=== PATIENT | female | born 1955 | race Caucasian/White ===

== ENCOUNTER 2019-10-11 16:12 | Outpatient (CLI) | payer BC, SELFPAY ==
--- NOTE | ~2019-10-11 | MM_ITS ---
EXAMINATION: MM screening nathalia BI w adi HISTORY: Screening mammogram, family history of breast cancer in her mother. TECHNIQUE: Craniocaudal and mediolateral oblique 3-D tomosynthesis images were obtained and synthetic 2-D images were generated. CAD analysis was submitted and interpreted. COMPARISON: 09/09/2018 BREAST PARENCHYMAL COMPOSITION: There are scattered areas of fibroglandular density. FINDINGS: Scattered benign-appearing calcifications are present. There is no evidence of suspicious m ass, calcification, or architectural distortion to suggest malignancy in either breast. There has bee n no suspicious interval change. IMPRESSION: 1. No mammographic evidence of malignancy. 2. Recommend routine screening mammography in one year. BI-RADS Category 2: Benign finding(s). Reviewed, dictated and finalized at location A. [facility]
== END 2019-10-11 16:13 | disposition home or self-care (01) ==
LOC: ANHIMG 16:15
PROVIDERS: PCP Internal Medicine; Visit Provider Internal Medicine
DX: Z12.31 Encounter for screening mammogram for malignant neoplasm of breast (principal)
CPT/HCPCS: 77063; 77067

== ENCOUNTER 2020-10-24 12:21 | Outpatient (CLI) | payer BC, SELFPAY ==
--- NOTE | ~2020-10-24 | MM_ITS ---
EXAMINATION: MM screening nathalia BI w adi HISTORY: Screening TECHNIQUE: Craniocaudal and mediolateral oblique 3-D tomosynthesis images were obtained and synthetic 2-D images were generated. CAD analysis was submitted and interpreted. COMPARISON: Comparison to multiple prior studies sequentially, with oldest reviewed study dated 09/09. BREAST PARENCHYMAL COMPOSITION: There are scattered areas of fibroglandular density. FINDINGS: There is no evidence of suspicious mass, calcification, or architectural distortion to sugg est malignancy in either breast. There has been no suspicious interval change. IMPRESSION: 1. No mammographic evidence of malignancy. 2. Recommend routine screening mammography in one year. BI-RADS Category 1: Negative Reviewed, dictated and finalized at location D. [employer]
== END 2020-10-24 12:22 | disposition home or self-care (01) ==
LOC: ANHIMG 12:25
PROVIDERS: PCP Internal Medicine; Visit Provider Internal Medicine
DX: Z12.31 Encounter for screening mammogram for malignant neoplasm of breast (principal)
CPT/HCPCS: 77063; 77067

== ENCOUNTER 2021-05-28 01:08 | Day surgery (SDC) | payer BC, SELFPAY ==
[2021-05-22 10:24] VITALS: BMI 26.2
[2021-05-28 10:11] VITALS: BP 111/62; PULSE 84; RESP 18; TEMP 36.2; O2SAT 97
[2021-05-28] MEDS: LACTATED RINGERS 1,000 ML 150 ML IV CONT (10:18)
--- NOTE | 2021-05-28 10:49 | P.PNAN_ITS ---
Anes - Initial Pre Proc Eval Procedure: Operation Date: 05/28/21 11:00 Proposed Procedures p Screening Colonoscopy - Dudley Gonzalez MD Date/Time: 05/28/21 10:49 Surgeon: Dudley Gonzalez MD Pre Op Diagnosis: hx of colon polyps Patient Data Age: 65 Gender: F Height: 1.7 m Weight: 75.5 kg Last Vital Signs Temp 97.1 F L 05/28/21 10:11 Pulse 84 05/28/21 10:11 Resp 18 05/28/21 10:11 BP 111/62 05/28/21 10:11 Pulse Ox 97 05/28/21 10:11 Allergies Allergy/AdvReac Type Severity Reaction Status Date / Time No Known Allergies Allergy Verified 05/28/21 10:09 Home Medications Medication Instructions Recorded Confirmed Type cholecalciferol (vitamin D3) 50 mcg PO DAILY 05/22/21 05/22/21 History [Vitamin D3] fluoxetine 20 mg PO DAILY 05/22/21 05/22/21 History Patient hx anesthesia problems: none Family hx anesthesia problems: none Results Review: All pre-operative results and documents have been reviewed as part of the pre-operative evaluation. [facility] Past Medical History Medical History (Updated 05/28/21 @ 10:49 by Jone Gonsalez MD) Depression Social History Social History Smoking status: Never smoker Alcohol intake: current Substance use: never Substance use type: does not use Living arrangements: with family Spiritual care concerns: No Anes - Eval Final PreProcedure Day of Procedure 05/28/21 10:49 Patient weight: overweight Heart: regular rate and rhythm Lungs: clear to auscultation Airway: Mallampati scale class II Neurological: alert and oriented Last oral intake: >/= 8 hours ASA classification: II Emergent: no Anesthetic plan: proceed Anesthesia type and monitoring: general GIVS and standard monitoring Results Review: All pre-operative results and documents have been reviewed as part of the pre-operative evaluation. Informed Consent: The patient's anesthetic plan and its attendant risks and benefits were discussed with the patient/family/POA. Questions were solicited and answers provided to the satisfaction of the patient/family/POA.
--- NOTE | 2021-05-28 11:07 | PM.HPGS ---
History of Present Illness History of Present Illness Consent: Risks, benefits, and alternatives have been discussed and questions answered. Patient agrees to proceed with procedure. Chief complaint: hx of colon polyps Narrative: Aurelia Sun is a 65 year old female with colon polyps 5 years ago. Review of Systems Constitutional: Constitutional: Denies headache(s) and Denies weakness Eyes: Eyes: Denies blurry vision ENT: Reports Normal hearing present, Denies headache(s) and Denies neck pain Cardiovascular: Cardiovascular: Denies chest pain and Denies dyspnea Respiratory: Respiratory: Denies dyspnea Gastrointestinal: Gastrointestinal: Reports no additional gastrointestinal complaints Genitourinary: Genitourinary: Denies dysuria Musculoskeletal: Musculoskeletal: Denies neck pain Integumentary/Breasts: Skin/Breast: Denies dry skin Neurologic: Reports Normal hearing present, Denies headache(s) and Denies weakness Psychiatric: Psychiatric: Denies anxiety Endocrine: Endocrine: Denies change in body appearance Hematologic/Lymphatic: Hematologic/Lymphatic: Denies easy bleeding Allergic/Immunologic: Allergic/Immunologic: Denies urticaria PMFSH Past Medical History Medical History (Updated 05/28/21 @ 11:08 by Dudley Gonzalez MD) Adenomatous colon polyp Depression Social History Social History Smoking status: Never smoker Alcohol intake: current Substance use: never Substance use type: does not use Living arrangements: with family Spiritual care concerns: No Meds Home Medications and Allergies Home Medications Medication Instructions Recorded Confirmed Type cholecalciferol (vitamin D3) 50 mcg PO DAILY 05/22/21 05/22/21 History [Vitamin D3] fluoxetine 20 mg PO DAILY 05/22/21 05/22/21 History Allergies Allergy/AdvReac Type Severity Reaction Status Date / Time No Known Allergies Allergy Verified 05/28/21 10:09 Vital Signs Vital Signs - 24 hr 05/28/21 10:11 Temperature 97.1 F L Pulse Rate 84 Respiratory Rate 18 Blood Pressure 111/62 Pulse Oximetry 97 Exam Const: General: comfortable and no acute distress HENMT: General nose exam: Normal nares present Eyes: General: appearance normal, both eyes and all related structures Neck: Neck: no JVD Resp: Auscultation: clear to auscultation bilaterally Cardio: Rate: regular rate Rhythm: regular rhythm GI: Inspection: non-distended GI Palp: Yes Soft to palpation Skin: General skin exam: normal color Neuro: General: gait normal Speech: normal speech Extrem: General: normal to inspection Psych: Mental Status: mental status grossly normal Assessment and Plan Assessment and plan (1) Adenomatous colon polyp: Code(s): D12.6 - Benign neoplasm of colon, unspecified Status: Acute Assessment and Plan: colonoscopy
[2021-05-28 11:31] VITALS: BP 96/58; PULSE 70; RESP 14; O2SAT 98
[2021-05-28 11:41] VITALS: BP 105/77; PULSE 74; RESP 14; O2SAT 100
[2021-05-28 11:51] VITALS: BP 114/68; PULSE 68; RESP 14; O2SAT 99
== END 2021-05-28 12:10 | disposition home or self-care (01) ==
PROVIDERS: PCP Internal Medicine; Visit Provider Internal Medicine Gastroenterology
PROC: 0DJD8ZZ Inspection of Lower Intestinal Tract, Via Natural or Artificial Opening Endoscopic (ICD-10-PCS; CPT 45378; principal; 2021-05-28 11:00)
DX: Z12.11 Encounter for screening for malignant neoplasm of colon (principal); K63.5 Polyp of colon; K64.8 Other hemorrhoids; F32.9 Major depressive disorder, single episode, unspecified
CPT/HCPCS: 45385; 88305; J2704; J7120

== ENCOUNTER 2021-11-11 07:40 | Outpatient (CLI) | payer MEDICARE, BC, SELFPAY ==
--- NOTE | ~2021-11-11 | MM_ITS ---
EXAMINATION: MM screening nathalia BI w adi HISTORY: Screening mammogram TECHNIQUE: Craniocaudal and mediolateral oblique 3-D tomosynthesis images were obtained and synthetic 2-D images were generated. CAD analysis was submitted and interpreted. COMPARISON: 10/24/2020, 10/11/2019, 09/09/2018 bilateral screening mammogram examinations BREAST PARENCHYMAL COMPOSITION: There are scattered areas of fibroglandular density. FINDINGS: Scattered bilateral punctate benign microcalcifications. There is no evidence of suspicious mass, calcification, or architectural distortion to suggest malignancy in either breast. There has b een no suspicious interval change. IMPRESSION: 1. No mammographic evidence of malignancy. 2. Recommend routine screening mammography in one year. BI-RADS Category 2: Benign finding(s). Reviewed, dictated and finalized at location A.
== END 2021-11-11 07:41 | disposition home or self-care (01) ==
LOC: ANHIMG 07:43
PROVIDERS: PCP Internal Medicine; Visit Provider Internal Medicine
DX: Z12.31 Encounter for screening mammogram for malignant neoplasm of breast (principal)
CPT/HCPCS: 77063; 77067

== ENCOUNTER 2022-01-03 13:51 | Emergency (ER) | payer MEDICARE, BC, SELFPAY ==
[2022-01-03 14:05] VITALS: BP 111/59; PULSE 98; RESP 18; TEMP 36.3; O2SAT 98
--- NOTE | 2022-01-03 14:09 | ED.URI ---
HPI - URI/Sore Throat General Chief Complaint: Upper Respiratory Infection Stated Complaint: bilateral eye discomfort Time Seen by Provider: 01/03/22 14:09 Source: patient Mode of arrival: ambulatory Limitations: no limitations History of Present Illness HPI Narrative: 66-year-old female presents with complaint of nasal congestion, runny nose, sinus pressure for 2 weeks. Reports that the last 2 days her face has felt swollen above her eyes and eyes look puffy. Denies fever chills. No cough. Taking Sudafed with no relief. Denies chest pain and shortness of breath. No nausea vomiting diarrhea. All systems reviewed and negative except as noted above. Related Data Home Medications Medication Instructions Recorded Confirmed fluoxetine 20 mg PO DAILY 05/22/21 01/03/22 rosuvastatin 10 mg DAILY 01/03/22 01/03/22 Allergies Allergy/AdvReac Type Severity Reaction Status Date / Time No Known Allergies Allergy Verified 01/03/22 14:10 Review of Systems Review of Systems: CONSTITUTIONAL: Denies fever, chills, or sweats. EYES: Denies visual changes, redness, or discharge. ENT: Reports rhinorrhea, congestion, sinus pressure. Denies sore throat, or otalgia. CARDIOVASCULAR: Denies chest pain, palpitations, or edema. RESPIRATORY: Denies cough or dyspnea. GASTROINTESTINAL: Denies abdominal pain, nausea, vomiting, or diarrhea. GENITOURINARY: Denies dysuria or hematuria. SKIN: Denies rash or itching. MUSCULOSKELETAL: Denies back pain, joint pain, or myalgia. NEUROLOGIC: Denies headache, numbness, or weakness. PSYCHIATRIC: Denies anxiety or depression. All other systems reviewed are negative, except as documented in HPI. [facility] Past Medical History Medical History (Updated 01/03/22 @ 14:19 by Rebekah Gallegos NP) Adenomatous colon polyp Depression Social History Social History Smoking status: Never smoker Alcohol intake: current Substance use: never Substance use type: does not use Spiritual care concerns: No Comments At time of signature, agree with nursing past medical, surgical, social and family history. There is no relevant family history pertinent to the presenting complaint. Exam Narrative: GENERAL: This is a well-nourished, well-developed patient, in no apparent distress. HEAD: normocephalic, atraumatic. EYES: PERRL. Sclera clear/white. Vision is grossly intact. Puffiness to bilateral upper eyelids. EARS: External ears normal, auditory canals clear and without drainage, fluid to bilateral TMs with no erythema. No bulging or perforation. NOSE: External nose normal with purulent nasal drainage, mild congestion, maxillary sinus tenderness, erythema to both nares. THROAT: Mucous membranes moist, posterior pharynx clear. NECK: Neck supple, non-tender without lymphadenopathy, masses or thyromegaly. CARDIOVASCULAR: Regular rate and rhythm without murmurs, gallops, or rubs. RESPIRATORY: Clear to auscultation. Breath sounds equal bilaterally. No wheezes, rales, or rhonchi. SKIN: warm, Dry, intact with no suspicious lesions or rash, good texture and turgor. NEURO: awake, alert, and oriented to person, place and time. There were no obvious focal neurologic abnormalities. EXTREMITIES: Normal range of motion to all extremities. Course Course Level of Care: Express Care Visit Vital Signs Vital signs: Vital Signs Temperature 36.3 C L 01/03/22 14:05 Pulse Rate 98 01/03/22 14:05 Respiratory Rate 18 01/03/22 14:05 Blood Pressure 111/59 L 01/03/22 14:05 Pulse Oximetry 98 01/03/22 14:05 Temperature 36.3 C L 01/03/22 14:05 Pulse Rate 98 01/03/22 14:05 Respiratory Rate 18 01/03/22 14:05 Blood Pressure 111/59 L 01/03/22 14:05 Pulse Oximetry 98 01/03/22 14:05 Reviewed MDM - URI/Sore Throat MDM Narrative Medical decision making narrative: Patient is aware of diagnosis, understands and agrees to treatment plan. Anticipatory guidance given. Patient agrees to follow-up as dir
== END 2022-01-03 14:23 | disposition home or self-care (01) ==
PROVIDERS: Emergency Provider Nurse Practitioner Family; PCP Internal Medicine
DX: J01.90 Acute sinusitis, unspecified (principal); F32.9 Major depressive disorder, single episode, unspecified; F32.A Depression, unspecified
CPT/HCPCS: 99213; G0463

== ENCOUNTER 2023-04-24 09:44 | Outpatient (CLI) | payer MEDICARE, BC, SELFPAY ==
--- NOTE | ~2023-04-24 | DEXA_ITS ---
Bone Density Report Name: AISHA MORENO Age: 67 Sex: Female Ethnicity: White Date of : 1955 Indication: osteopenia; postmenopausal Referring Provider: DENNIS, OSWALDO Nice Study: Bone densitometry was performed. Exam Date: April 24, 2023 Accession number: [id number] Bone Density: Region BMD T-score Z-score Classification AP Spine(L1-L4) 0.843 -1.9 0.0 Osteopenia Femoral Neck (Left) 0.695 -1.4 0.2 Osteopenia Total Hip (Left) 0.811 -1.1 0.2 Osteopenia Femoral Neck (Right) 0.689 -1.4 0.1 Osteopenia Total Hip (Right) 0.805 -1.1 0.2 Osteopenia Total Hip Mean 0.808 -1.1 0.2 Osteopenia World Health Organization criteria for BMD impression classify patients as: Normal (T-score at or above -1.0), Osteopenia (T-score between -1.0 and -2.5), or Osteoporosis (T-score at or below -2.5). 10-year Fracture Risk(1): Major Osteoporotic Fracture 8.9% Hip Fracture 0.9% Reported Risk Factors: [place] (), Neck BMD=0.695, BMI=28.5 (1) FRAX(R) Version 3.08. Fracture probability calculated for an untreated patient. Fracture probability may be lower if the patient has received treatment. Previous Exams: Region Exam Age BMD T-score BMD Change BMD Change Date g/cm2 vs Baseline vs Previous AP Spine (L1-L4) 04/24/2023 67 0.843 -1.9 -0.008 (-1.0%) -0.008 (-1.0%) 09/09/2018 62 0.852 -1.8 Total Hip(Left) 04/24/2023 67 0.811 -1.1 -0.020 (-2.5%) -0.020 (-2.5%) 09/09/2018 62 0.832 -0.9 Total Hip(Right) 04/24/2023 67 0.805 -1.1 0.012 (1.5%) 0.012 (1.5%) 09/09/2018 62 0.794 -1.2 *Denotes significance at 95% confidence level, LSC for AP Spine = 0.022 g/cm2, LSC for Total Hip = 0.027 g/cm2 Clinical Information Provided by Patient: Has used the following medications: Vitamin D, Calcium Patient maximum height was 67 Menopause Age: 54 No regular weight bearing exercise Does not regularly consume dairy products Drinks caffeinated beverages Onset of menses at age 13 Number of children 2 Impression: The patient has low bone mass, based on the Total Spine T-score. The patient has an estimated ten-year risk of hip fracture of 0.9% and an estimated ten-year risk of major fracture of 8.9%, based on the WHO FRAX algorithm. No significant bone loss was observed. Discussion: BONE DENSITY IS LOW AT ONE OR MORE SKELETAL SITES. This patient's lowest T-score is low at one or more skeletal sites. It meets the Wo
--- NOTE | ~2023-04-24 | MM_ITS ---
EXAMINATION: MM screening nathalia BI w adi HISTORY: Screening mammogram, family history of breast cancer in her mother. TECHNIQUE: Craniocaudal and mediolateral oblique 3-D tomosynthesis images were obtained and synthetic 2-D images were generated. CAD analysis was submitted and interpreted. COMPARISON: 11/11/2021, 10/24/2020, 10/11/2019 BREAST PARENCHYMAL COMPOSITION: There are scattered areas of fibroglandular density. FINDINGS: Scattered benign-appearing calcifications are present. No suspicious mass, calcification, o r architectural distortion are identified in either breast to suggest malignancy. There has been no s uspicious interval change. IMPRESSION: 1. No mammographic evidence of malignancy. 2. Recommend routine screening mammography in one year. BI-RADS Category 2: Benign finding(s). Reviewed, dictated and finalized at location B.
== END 2023-04-24 09:45 | disposition home or self-care (01) ==
LOC: ANHIMG 09:47
PROVIDERS: PCP Internal Medicine; Visit Provider Internal Medicine
DX: Z12.31 Encounter for screening mammogram for malignant neoplasm of breast (principal); Z78.0 Asymptomatic menopausal state; M85.88 Other specified disorders of bone density and structure, other site; M85.852 Other specified disorders of bone density and structure, left thigh; M85.851 Other specified disorders of bone density and structure, right thigh
CPT/HCPCS: 77063; 77067; 77080

== ENCOUNTER 2024-01-07 17:27 | Emergency (ER) | payer MEDICARE, BC, SELFPAY ==
[2024-01-07 17:37] VITALS: BP 115/69; PULSE 81; RESP 18; TEMP 36.3; O2SAT 98
--- NOTE | 2024-01-07 18:12 | ED.FEMALEGU ---
HPI - Female Genitourinary General Chief complaint: Urogenital-Female Stated complaint: UTI symptoms Time Seen by Provider: 01/07/24 17:55 Source: patient and RN notes reviewed Mode of arrival: ambulatory Limitations: no limitations History of Present Illness HPI Narrative: Patient presents today complaining of a 2 day history of urinary frequency, decreased output, lower abdominal pressure. Denies fever, vomiting, chills and sweats, or any additional symptoms. She has tried no [id number] treatment prior to arrival. No recent antibiotic use. Related Data Home Medications Medication Instructions Recorded Confirmed fluoxetine 20 mg capsule 20 mg PO DAILY 05/22/21 01/07/24 rosuvastatin 10 mg tablet 10 mg DAILY 01/03/22 01/07/24 cholecalciferol (vitamin D3) 10 10 mcg PO DAILY 01/13/23 01/07/24 mcg (400 unit) capsule Allergies Allergy/AdvReac Type Severity Reaction Status Date / Time No Known Allergies Allergy Verified 01/07/24 17:43 Review of Systems Review of Systems: CONSTITUTIONAL: Denies body aches, fever, chills, or sweats. EYES: Denies visual changes, redness, or discharge. ENT: Denies rhinorrhea, congestion, sore throat, or otalgia. CARDIOVASCULAR: Denies chest pain, palpitations, or edema. RESPIRATORY: Denies cough or dyspnea. GASTROINTESTINAL: Denies abdominal pain, nausea, vomiting, or diarrhea. GENITOURINARY: + frequency, decreased urine output, lower abdominal pressure SKIN: Denies rash, itching, or wounds. MUSCULOSKELETAL: Denies back pain, joint pain, or myalgia. NEUROLOGIC: Denies headache, numbness, tingling, or weakness. PSYCH: Denies depression or anxiety. [facility] Past Medical History Medical History Adenomatous colon polyp Depression Family History Family History Father Alzheimer disease Mother Breast cancer Heart disease Cancer Sibling Uterine cancer Other Epilepsy Grandparent Hypertension Heart disease Social History Social History Smoking status: Never smoker Alcohol intake: current Substance use: never Substance use type: does not use Lack of Transportation: No Lack of Food: Never True Current Housing: I Have Housing Concerned About Future Housing: No Difficulty Paying Gas/Electric Bills: No Difficulty Paying for Meds: No Currently Unemployed: No Education: Associate Degree Difficulty w/ Childcare or Family Care: No Living arrangements: with family Spiritual care concerns: No Comments At time of signature, I have reviewed and agree with nursing past medical, surgical, social and family history unless otherwise noted. Please see nursing chart for further information. There is no relevant family history pertinent to the presenting complaint Exam Narrative: GENERAL: Well-appearing, well-nourished, and in no acute distress. HEAD: Normocephalic, atraumatic. EYES: EOMI. No redness or drainage. Conjunctivae normal. ENT: Mucous membranes pink and moist. NECK: Normal AROM. CHEST: No respiratory distress. Clear to auscultation. HEART: Regular rate and rhythm. No murmur appreciated. Normal peripheral pulses. ABDOMEN: Soft, nondistended, normal active bowel sounds. Suprapubic tenderness EXTREMITIES: Normal range of motion. No edema. SKIN: Warm, dry, no rash. Capillary refill normal. Normal skin turgor. NEURO: No focal deficits. Alert and oriented x3. Gait steady. PSYCH: Normal affect. No signs of depression or anxiety. Course Course Level of Care: Express Care Visit Vital Signs Vital signs: Vital Signs Temperature 97.4 F L 01/07/24 17:37 Pulse Rate 81 01/07/24 17:37 Respiratory Rate 18 01/07/24 17:37 Blood Pressure 115/69 01/07/24 17:37 Pulse Oximetry 98 01/07/24 17:37 Oxygen Delivery Room Air 01/07/24 17:37
== END 2024-01-07 18:27 | disposition home or self-care (01) ==
PROVIDERS: Emergency Provider Nurse Practitioner; PCP Internal Medicine
DX: N39.0 Urinary tract infection, site not specified (principal); F32.A Depression, unspecified
CPT/HCPCS: 81003; 99213; G0463

== ENCOUNTER 2024-05-06 07:31 | Outpatient (CLI) | payer MEDICARE, BC, SELFPAY ==
--- NOTE | ~2024-05-06 | MM_ITS ---
EXAMINATION: MM screening nathalia BI w adi HISTORY: Screening mammogram, family history of breast cancer in her mother. TECHNIQUE: Craniocaudal and mediolateral oblique 3-D tomosynthesis images were obtained and synthetic 2-D images were generated. CAD analysis was submitted and interpreted. COMPARISON: 04/24/2023, 11/10/2021, 10/24/2020 BREAST PARENCHYMAL COMPOSITION:Not Dense. The breasts are almost entirely fatty FINDINGS: No suspicious mass, calcification, or architectural distortion are identified in either edna ast to suggest malignancy. There has been no suspicious interval change. IMPRESSION: No mammographic evidence of malignancy. Recommend routine screening mammography in one year. BI-RADS Category 1: Negative Reviewed, dictated and finalized at location .
== END 2024-05-06 07:32 | disposition home or self-care (01) ==
LOC: ANHIMG 07:37
PROVIDERS: PCP Internal Medicine; Visit Provider Internal Medicine
DX: Z12.31 Encounter for screening mammogram for malignant neoplasm of breast (principal)
CPT/HCPCS: 77063; 77067

== ENCOUNTER 2025-05-29 15:06 | Outpatient (CLI) | payer MEDICARE, BC, SELFPAY ==
--- OUTSIDE RECORDS SUMMARY | 2025-05-26 03:08 | XMS_ITS | Continuity of Care Document ---
Author Organization [facility] Address [address] [place] [address] Phone Care Team Providers Care Outreach Analyst Name Role Phone Adri Hernandez MD Unavailable Unavailable Allergies, Adverse Reactions, Alerts Substance Reaction Status Criticality No Known Allergies Active No Inform ation Medications Medication Instructions Dosage Effective Dates (start - stop) Status Comments IBUPROFEN 800MG TABLETS TAKE 1 TABLET BY MOUTH THREE TIMES DAILY WITH FOOD NEEDED - Active FLUOXETINE 20MG CAPSULES TAKE 1 CAPSULE BY MOUTH EVERY DAY IN THE MORNING - Active ROSUVASTATIN 10MG TABLETS TAKE 1 TABLET BY MOUTH EVERY DAY - Active magnesium 400 mg (as magnesium oxide) tablet take 1 tablet by oral route every day 1 tablet - Active Calcium 500 500 mg calcium (1,250 mg) tablet 2 tablets daily - Active Vitamin D3 1,000 unit tablet 1 tablet daily - Active Procedures Procedure Date Pt inelig neg scrn depres FALL RISK ASSESSMENT DOC'D PRES/ABSN URINE INCON ASSESS MED LIST DOCD IN RCRD Admin influenza virus vac FLU VACC PRSV FREE INC ANTIG PPPS, subseq visit BODY MASS INDEX DOCD SYST BP LT 130 MM HG DIAST BP < 80 MM HG Pt inelig neg scrn depres Pt inelig neg scrn depres OFFICE [id number] BODY MASS INDEX DOCD SYST BP LT 130 MM HG DIAST BP < 80 MM HG Brief Emotional/Behavioral A ssessment, With Scoring/Doct, Per Stndrd Instrument Pt inelig neg scrn depres FALL RISK ASSESSMENT DOC'D PRES/ABSN URINE INCON ASSESS Depression screen annual Clin depression screen doc PPPS, subseq visit BODY MASS INDEX DOCD SYST BP LT 130 MM HG DIAST BP < 80 MM HG BASIC METABOLIC PANEL(BMP) CBC, INC PLATELETS AND DIFFERENTIAL VITAMIN B12 (SERUM) OFFICE [id number] BODY MASS INDEX DOCD SYST BP LT 130 MM HG DIAST BP < 80 MM HG URINALYSIS, DIPSTICK (UA) - Office Lab J ROUTINE VENIPUNCTURE [place] Admin influenza virus vac FLU VACC PRSV FREE INC ANTIG OFFICE [id number] BODY MASS INDEX DOCD SYST BP LT 130 MM HG DIAST BP < 80 MM HG Pt inelig neg scrn depres FALL RISK ASSESSMENT DOC'D PRES/ABSN URINE INCON ASSESS PPPS, subseq visit BODY MASS INDEX DOCD SYST BP LT 130 MM HG DIAST BP < 80 MM HG Pt inelig neg scrn depres FALL RISK ASSESSMENT DOC'D PRES/ABSN URINE INCON ASSESS Admin influenza virus vac Flu Vac, quad (RIV4), Preservative And A ntibiotic Free IM OFFICE [id number] BODY MASS INDEX DOCD SYST BP LT 130 MM HG DIAST BP < 80 MM HG FALL RISK ASSESSMENT DOC'D PRES/ABSN URINE INCON ASSESS Pt inelig neg scrn depres PNEUMOVAX ADM MEDICARE Pneumococcal Conjugate Vaccine (PCV20) J INIT PREVENT PHYS EXAM; LIMITED TO [facility] ENEFICIARY BODY MASS INDEX DOCD SYST BP LT 130 MM HG DIAST BP < 80 MM HG ELECTROCARDIOGRAM ECG WITH 12 LEADS INTE RP AND RPT Pt inelig neg scrn depres OFFICE [id number] BODY MASS INDEX DOCD SYST BP LT 130 MM HG DIAST BP < 80 MM HG SCREENING FOR PAP (OBTAINING SPECIMEN) J THINPREP PAP Pt inelig neg scrn depres PREVENTATIVE-EST: 40-64 BODY MASS INDEX DOCD SYST BP LT 130 MM HG DIAST BP < 80 MM HG Pt inelig neg scrn depres OFFICE [id number]-RNNBRHEM BODY MASS INDEX DOCD SYST BP LT 130 MM HG DIAST BP < 80 MM HG Pt inelig neg scrn depres OFFICE [id number]-MCO-[id number] BODY MASS INDEX DOCD SYST BP LT 130 MM HG DIAST BP < 80 MM HG Pt inelig neg scrn depres PREVENTATIVE-EST: 40-64 BODY MASS INDEX DOCD SYST BP LT 130 MM HG DIAST BP < 80 MM HG CBC, INC PLATELETS AND DIFFERENTIAL COMPREHEN METABOLIC PANEL CMP 0 LIPID PANEL ROUTINE VENIPUNCTURE Pt inelig neg scrn deprharrison IMMUN ADMIN (INC PERCUTANEOUS) SINGLE, F IRST INJ FLU VAC NO PRSV 4 STEFANO, 0.5mL DOSAGE OFFICE [id number] BODY MASS INDEX DOCD SYST BP LT 130 MM HG DIAST BP < 80 MM HG OFFICE [id number] BODY M[facility]DEX [facility] SY[facility] BP LT 130 MM HG DIAST BP < 80 MM HG OFFICE [id number] BODY MASS INDEX [facility] SYST BP LT 130 MM HG DIAST BP < 80 MM HG OFFICE [id number] BODY MASS INDEX [facility] SY[facility] BP LT 130 MM HG DIAST BP < 80 MM HG ALT(SGPT), ALANINE TRANSAMINASE 019 ASPARTATE TRANSAMINASE AST,SGOT, LF ROUTINE VENIPUNCTURE Pt inelig neg scrn hannah PREVENTATIVE-EST: 40-64 BODY MASS INDEX [facility] SY[facility] BP LT 130 MM HG DIAST BP < 80 MM HG CBC, INC PLATELETS AND DIFFERENTIAL COMPREHEN METABOLIC PANEL CMP 9 LIPID PANEL ROUTINE VENIPUNCTURE Advance Directives Directive Yes / No Effective Date File Name Life Support Not Answered N/A N/A Intubation Not Answered N/A N/A Antibiotics Not Answered N/A N/A IV Fluid Support Not Answered N/A N/A Tube Feed Not Answered N/A N/A Other Directive N/A N/A WARNING:The information contained in this section is historical and is provided for information only and does not constitute a legal document or any assurance that the information is still accurate. Please verify the information with the gong of the legal document before using it for clinical purposes. Encounters Encounter Description Practice Location Reason(s) For Visit Diagnoses Date Provider Providers Copied on Encounter [facility], [address], [place], [place], [address] , tel: [phone] [facility] No Information 0 5 David Rush. [address] [place], [place], [address] , [place]. tel: [phone] [facility], [address], [place], [place], [address] , [place] tel: [phone] [facility] [employer] [facility] Medicare preventive (chief complaint)C hronic Conditions (chief complaint) Body mass index [BMI] 27.0-27.9, adultEncntr for general adult medical exam w/o abnormal findingsElevated glucoseDyslipidemi a Apr- 5 David Rush. [address] [place], [place], [address] , . tel: [phone] Referring Provider: Adri Guido, [address] [place], [address] . tel:[phone] [facility], [address], [place], [place], [address] , [place] tel: [phone] [facility] Hyperlipidemia, unspecified hyperlipidemia typeElevated glucose level 5 David Rush. [address] [place], [place], [address] , [place]. tel: [phone] [facility], [address], [place], [place], [address] , [place] tel: [phone] [facility] No Information 5 David Rush. [address] [place], [place], [address] , . tel: [phone] OFFICE ZKVFL-SSG-FJ TAILED [facility], [address], [place], [place], [address] , [place] tel: [phone] [facility] Chronic Conditions (chief complaint) DyslipidemiaDepres yan, major, recurrent, in partial remissionEssential thrombocythemia 5 David Rush. [address] [place], [place], [address] , . tel: [phone] Referring Provider: Adri Guido, [address] [place], [address] . tel:[phone] [facility], [address], [place], [place], [address] , [place] tel: [phone] [facility] Essential thrombocythemiaHyp erlipidemia, unspecified hyperlipidemia type 5 Davidsaurabh Rush. [address] [place], [address] , [place]. tel: [phone] [facility], [address], [place], [place], [address] , tel: [phone] [facility] No Information 5 David Adri. [address] [place], [address] , [place]. tel: [phone] [facility], [address], [place], [place], [address] , [place] tel: [phone] [facility] No Information 4 David Adri. [address] [place], [address] , [place]. tel: [phone] [facility], [address], [place], [place], [address] , [place] tel: [phone] [facility] Medicare preventive (chief complaint)C hronic Conditions (chief complaint) Body mass index [BMI] 30.0-30.9, adultRoutine medical examPure hypercholesterolem iaMild recurrent major depressionEssentia l thrombocythemia 4 David Rush. [address] [place], [place], [address] , [place]. tel: [phone] Referring Provider: Adri Guido, [address] [place], [address] . tel:[phone] [facility], [address], [place], [place], [address] , tel: [phone] [facility] No Information 4 Brendan Mclaughlin. [address], [address] , . tel: [phone] Referring Provider: Adri Guido, [address] [place], [address] . tel:[phone] [facility], [address], [place], [place], [address] , [place] tel: [phone] [facility] Hyperlipidemia, unspecified hyperlipidemia typePure hypercholesterolem ia 4 David Rush. [address] [place], [place], [address] , [place]. tel: [phone] [facility], [address], [place], [place], [address] , [place] tel: [phone] [facility] No Information 4 Brendan Mclaughlin. [address], [id number] , . tel: [phone] Referring Provider: Vee Phillip, [address] [place], [address] . tel:[phone] OFFICE BHCIN-BJP-NE [facility], [address], [place], [place], [address] , [place] tel: [phone] [facility] urinary symptoms, fatigue (chief complaint) Body mass index [BMI] 29.0-29.9, adultUrinary frequencyFatigue, unspecified type 4 Kenji Baxter. [address] [place], [address] , [place]. tel: [phone] Referring Provider: Mariano Baker, [address] [place], [address] . tel:[phone] OFFICE MEUOU-FOP-KK [facility], [address], [place], [place], [address] , [place] tel: [phone] [facility] evaluate knee pain (chief complaint)C hronic Conditions (chief complaint) Body mass index [BMI] 29.0-29.9, adultMajor depression in remissionPure hypercholesterolem iaChronic bilateral low back pain without sciaticaOther chronic painPain in right kneePain in left knee 4 David Rush. [address] [place], [address] , [place]. tel: [phone] Referring Provider: Adri Guido, [address] [place], [address] . tel:[phone] [facility], [address], [place], [place], [address] , [place] tel: [phone] [facility] Hyperlipidemia, unspecified hyperlipidemia typeRoutine medical exam 3 David Rush. [address] [place], [address] , [place]. tel: [phone] [facility], [address], [place], [place], [address] , [place] tel: [phone] [employer] [facility] Medicare preventive (chief complaint)C hronic Conditions (chief complaint) Body mass index [BMI] 27.0-27.9, adultPure hypercholesterolem iaMajor depression in remissionRoutine medical exam 3 David Rush. [address] [place], [place], [address] , [place]. tel: [phone] Referring Provider: Adri Guido, [address] [place], [address] . tel:[phone] [employer] [facility], [address], [place], [place], [address] , [place] tel: [phone] [facility] Hyperlipidemia, unspecified hyperlipidemia type 3 David Rush. [address] [place], [place], [address] , [place]. tel: [phone] OFFICE IEABL-OGI-JI TAILED [facility], [address], [place], [place], [address] , tel: [phone] [facility] Chronic conditions (chief complaint)f /u chronic conditions (chief complaint) Body mass index [BMI] 25.0-25.9, adultMajor depression in remissionPure hypercholesterolem iaAsymptomatic menopausal stateEncounter for screening mammogram for malignant neoplasm of breast 3 David Rush. [address] [place], [address] , [place]. tel: [phone] Referring Provider: Adri Guido, [address] [place], [address] . tel:[phone] [facility], [address], [place], [place], [address] , tel: [phone] [facility] Hyperlipidemia, unspecified hyperlipidemia type 3 David Rush. [address] [place], [place], [address] , [place]. tel: [phone] [facility], [address], [place], [place], [address] , [place] tel: [phone] [facility] Medicare preventive (chief complaint)C hronic Conditions (chief complaint) Body mass index [BMI] 28.0-28.9, adultPure hypercholesterolem iaRoutine medical examMajor depression in remission 2 David Rush. [address] [place], [place], [address] , [place]. tel: [phone] Referring Provider: Adri Guido, [address] [place], [address] . tel:[phone] [facility], [address], [place], [place], [address] , [place] tel: [phone] [facility] Elevated LFTs 2 David Rush. [address] [place], [address] , [place]. tel: [phone] OFFICE HCCWL-OPR-NF TAILED [facility], [address], [place], [place], [address] , [place] tel: [phone] [place] [facility] f/u chronic conditions and pap (chief complaint) Body mass index [BMI] 27.0-27.9, adultPure hypercholesterolem iaMajor depression in remissionEncounter for gynecological examination with Papanicolaou smear of cervixCervical cancer screening 2 David Rush. [address] [place], [place], [address] , [place]. tel:[phone] Referring Provider: Adri Guido, [address] [place], [address] . tel:[phone] [facility], [address], [place], [place], [address] , [place] tel: [phone] [facility] Encounter for general adult medical examination without abnormal findingsElevated LFTs 2 David Rush. [address] [place], [place], [address] , [place]. tel:[phone] PREVENTATIVE -EST: 40-64 [facility], [address], [place], [place], [address] , [place] tel: [phone] [place] [facility] preventive exam (chief complaint) Body mass index (BMI) 29.0-29.9, adultPure hypercholesterolem iaMajor depression in remissionRoutine medical examPersonal history of colonic polyps 1 David Rush. [address] [place], [place], [address] , [place]. [phone] Referring Provider: Adri Guido, [address] [place], [address] . tel:[phone] [facility], [address], [place], [place], [address] , [place] tel: [phone] [place] [facility] Routine medical examPure hypercholesterolem ia 1 David Rush. [address] [place], [place], [address] , [place]. tel:[phone] OFFICE OXLTK-LKH-VN PANDED [facility], [address], [place], [place], [address] , [place] tel: [phone] [facility] Chronic Conditions (chief complaint) Body mass index (BMI) 30.0-30.9, adultPure hypercholesterolem iaMajor depression in remission 0 David Rush. [address] [place], [place], [address] , [place]. [phone] Referring Provider: Adri Guido, [address] [place], [address] . tel:[phone] OFFICE HEHPH-CMD-MR [facility], [address], [place], [place], [address] , tel: [phone] [facility] back pain-Lower left side (chief complaint) Body mass index (BMI) 29.0-29.9, adultAcute left-sided low back pain without sciatica 0 Kenji Baxter. [address] [place], [address] , [place]. tel:[phone] Referring Provider: Adri Guido, [address] [place], [address] . tel:[phone] PREVENTATIVE -EST: 40-64 [facility], [address], [place], [place], [address] , tel: [phone] [facility] Physical (chief complaint)p reventive exam (chief complaint) Body mass index (BMI) 28.0-28.9, adultRoutine medical examPure hypercholesterolem iaMajor depression in remission 0 David Rush. [address] [place], [place], [address] , [place]. tel:[phone] Referring Provider: Adri Guido, [address] [place], [address] . tel:[phone] OFFICE SGWRD-SZD-PM [facility], [address], [place], [place], [address] , [place] tel: [phone] [facility] 6 month office visit (chief complaint) Body mass index (BMI) 28.0-28.9, adultRight shoulder pain, unspecified chronicityParesthe kadie in right hand 9 David Rush. [address] [place], [place], [address] , [place]. tel: [phone] Referring Provider: Adri Guido, [address] [place], [address] . [phone] [facility], [address], [place], [place], [address] , tel: [phone] [place] Tear of right supraspinatus tendon David Rush. [address] [place], [place], [address] , [place]. tel: [phone] Referring Provider: Adri Guido, [address] [place], [address] . tel:[phone] OFFICE [facility], [address], [place], [place], [address] , [place] tel: [phone] [place] right shoulder pain (chief complaint) Body mass index (BMI) 28.0-28.9, adultRight shoulder pain, unspecified chronicity 9 Phillip Vee. [address] [place], [address] , [place]. tel: [phone] Referring Provider: Adri Guido, [address] [place], [address] . tel:[phone] OFFICE [facility]VA[facility], [address], [place], [place], [address] , [place] tel: [phone] [place] Shoulder pain f/u (chief complaint) Body mass index (BMI) 28.0-28.9, adultRight shoulder pain, unspecified chronicityImpetigo 9 Phillip Vee. [address] [place], [place], [address] , [place]. tel: [phone] Referring Provider: Adri Guido, [address] [place], [address] . tel:[phone] [facility], [address], [place], [place], [address] , [place] tel: [phone] [place] right shoulder pain (chief complaint) Body mass index (BMI) 28.0-28.9, adultRight shoulder pain, unspecified chronicity 9 Kenji Baxter. [address] [place], [address] , . tel: [phone] Referring Provider: Adri Guido, [address] [place], [address] . tel:[phone] [facility], [address], [place], [place], [address] , tel: [phone] [facility] Elevated LFTs Sep- 9 Davidsaurabh Rush. [address] [place], [place], [address] , [place]. tel: [phone] Referring Provider: Adri Guido, [address] [place], [address] . tel:[phone] PREVENTATIVE -EST: 40-64 [facility], [address], [place], [place], [address] , tel: [phone] [facility] Physical (chief complaint)p reventive exam (chief complaint) Body mass index (BMI) 30.0-30.9, adultRoutine medical examPure hypercholesterolem iaMajor depression in remission 9 David Adri. [address] [place], [place], [address] , [place]. tel: [phone] Referring Provider: Adri Guido, [address] [place], [address] . [phone] [facility], [address], [place], [place], [address] , tel: [phone] [facility] No Information 9 David Rush. [address] [place], [place], [address] , [place]. tel: [phone] [facility], [address], [place], [place], [address] , tel: [phone] [facility] Pure hypercholesterolem iaMajor depression in remissionDysuriaBo dy mass index (BMI) 28.0-28.9, adult Dec- 5-201 8 David Rush. [address] [place], [place], [address] , . tel: [phone] Referring Provider: Adri Guido, [address] [place], [address] . [phone] [facility], [address], [place], [place], [address] , tel: [phone] [place] Routine medical examPure hypercholesterolem iaMajor depression in remissionScreening for osteoporosisBody mass index (BMI) 27.0-27.9, adult 8 David Adri. [address] [place], [place], [address] , . tel: [phone] Referring Provider: Adri Guido, [address] [place], [address] . [phone] [facility], [address], [place], [place], [address] , tel: [phone] [place] Encounter for general adult medical examination without abnormal findingsPure hypercholesterolem iaBody mass index (BMI) 29.0-29.9, adultMajor depression in remission 7 David Rush. [address] [place], [place], [address] , [place]. tel: [phone] Referring Provider: Adri Guido, [address] [place], [address] . tel:[phone] Family History Family Member Type Diagnosis Age At Onset Mother Problem (finding) malignant neoplasm of t hyroid Mother Problem (finding) malignant neop lasm of breast in first degree relative Son Problem (finding) Father Problem (finding) alzheimer's disease Problem (finding) Family history of colit is Daughter Problem (finding) Sister Problem (finding) malignant neoplasm of u terus Sister Problem (finding) Hearing deficiency Mother Problem (finding) coronary arterioscleros is Sister Problem (finding) Obesity Paternal grandfather Problem (finding) coronary arteri osclerosis Sister Problem (finding) hypercholesterolemia Father Problem (finding) hypercholesterolemia Mother Problem (finding) depression Immunizations Vaccine Date Status Comments Fluzone High-Dose Trivalent, preservative free administered Source: New Immuniza tion Record Fluzone High-Dose, high dose , preservative free administered Source: New Immuniza tion Record Flublok, quadrivalent, preservative free, 0.5mL dosage administered Source: New Immuniza tion Record Pneumococcal conjugate PCV20 administered Source: New Immunization Record Pfizer (Diluent Reconstitute d) COVID19 Vaccine, 0.3mL per dose, 2 doses, administered 21 days apart administered Source: Source Unspe cified Pfizer-BioNTHello Agent COVID19 Vaccine, 0.3mL per dose, 2 doses, administered 21 days apart administered Note: sc[facility]d ; Source : Public Agency Medityplus-BioNTHello Agent COVID19 Vaccine, 0.3mL per dose, 2 doses, administered 21 days apart administered Note: sc[facility] ; Source : Public Agency SHINGRIX (Zoster vaccine recombinant, adjuvanted) administered Note: Maura' s ; Source: Source Unspecified Flublok, quadrivalent, preservative free, 0.5mL dosage administered Note: Maura's ; S ource: Source Unspecified Fluzone Quad, preservative free, split virus, 0.5mL dosage administered Source: New Immuniza tion Record Fluzone Quad, preservative free, split virus, 0.5mL dosage administered Source: New Immuniza tion Record Zoster administered Note: date not accurate ; Source: Source Unspecified Fluzone Quad , preservative free, split virus, 0.5mL dosage administered Note: date not accur ate ; Source: Source Unspecified Hep A (adult) administered Source: Source Unspecified Tdap administered Source: Source Unspecified Hep A (adult) administered Source: Source Unspecified Payers Payer name Insurance type Covered alliance party ID Authoriza tion(s) [place] [id number] [facility] OUT OF STATE BL [id number] [place] [id number] [place] [id number] [place] [id number] [place] [id number] [place] [id number] [place] [id number] [place] [id number] [place] [id number] Social History Type Description Quantity Date Captured Comments Alcohol Use Details Unknown Caffeine Use Details Unknown Tobacco Use Status No Information Smoking Status No Information Sex Female Chief Complaint And Reason For Visit No Information Reason For Referral Reason For Referral No Information Plan Of Treatment Date Type Action Status Goal Dietary manageme nt education, guidance, and counseling completed Goal Dietary manageme nt education, guidance, and counseling completed Goal Dietary manageme nt education, guidance, and counseling completed Goal Dietary manageme nt education, guidance, and counseling completed Goal Dietary manageme nt education, guidance, and counseling completed Goal Dietary manageme nt education, guidance, and counseling completed Goal Dietary manageme nt education, guidance, and counseling completed Goal Dietary manageme nt education, guidance, and counseling completed Goal Dietary manageme nt education, guidance, and counseling completed Goal Dietary manageme nt education, guidance, and counseling completed Goal Dietary manageme nt education, guidance, and counseling completed Goal Dietary manageme nt education, guidance, and counseling completed Goal Dietary manageme nt education, guidance, and counseling completed Goal Dietary manageme nt education, guidance, and counseling completed Goal Dietary manageme nt education, guidance, and counseling completed Goal Dietary manageme nt education, guidance, and counseling completed Goal Dietary manageme nt education, guidance, and counseling completed Referral Referred To: [address] [place] [address], [phone] Ordered: DEXA of spine and hip ordered Referral Referred To: [address], [phone] Ordered: SCREENING MAMMOGRAM (CAD) ordered Referral Ordered: EKG (ELECTROCARDIOGRAM) ordered Referral Ordered: COLONOSCOPY, Flexible, Proximal To Splenic, Diagnostic, Wor W/O Collection Of Sp ordered Referral Referred To: Thierry Toledo DO [address] [place], [phone] Ordered: Referrals: Orthopedic Surgery. Thierry Toledo DO. Evaluation/diagnostic/treatment - Level 3 Appointment date/timeframe: 07/05/2019 ordered Referral Ordered: MRI shoulder right wo contrast Right Appointment date/timeframe: 06/17/2019 ordered Referral Referred To: Physical Therapy Ordered: Referrals: Physical Therapy. Location: [facility]. Evaluate and treat - Level 2 Appointment date/timeframe: 06/13/2019 ordered Appointment Aurelia Sun BOOKED Appointment Aurelia Sun BOOKED History Of Present Illness Encounter Date Complaint History Of Prese nt Illness Chronic Conditions *See Chronic Conditions HPI Medicare preventive A Health Ris k Assessment has been performed and reviewed. The patient has not felt depressed and has had interest and pleasure doing things recently. Functional Status: (Functional status has not changed) on 05/08/2025. Cognitive Status: (Cognitive status has not changed). The ''Up and Go'' test took less than 30 seconds andthe patient does not need help with activities of daily living. The patient is not at risk for falls. The patient has not fallen in the last year. The fall(s) did not result in injury. The patient does not have smoke detectors, carbon monoxide detectors in the home. Patient reports not using a seatbelt in vehicles. Relevant history is positive for alcohol use. Relevant history is negative for tobacco use. Chronic Conditions *See Chronic Conditions HPI Chronic Conditions *See Chronic Conditions HPI Medicare preventive A Health Ris k Assessment has been performed and reviewed. The patient has not felt depressed and has had interest and pleasure doing things recently. Functional Status: (Functional status has not changed) on 03/07/2024. Cognitive Status: (Cognitive status has not changed) on 03/07/2024. The ''Up and Go'' test took less than 30 seconds andthe patient does not need help with activities of daily living. The patient is not at risk for falls. The patient has fallen 1 times in the last year. The fall(s) resulted in injury. Details: knee injury which resulted in bursitis. The patient does not have smoke detectors, carbon monoxide detectors in the home. Patient reports not using a seatbelt in vehicles. Relevant history is positive for alcohol use. Relevant history is negative for tobacco use. urinary symptoms, fatigue 68 yea r old female who presents with urinary symptoms and ongoing COVID symptoms.She was diagnosed with COVID recently. She reports she did not actually test for COVID but she was on a bus with lots of other who tested positive. She reports having similar symptoms that she reported as allergy symptoms. She tested negative for COVID 4 days ago. She has ongoing fatigue and vertigo. Her symptoms first started on 01/26/2024. She also reports pelvic pain and has had this was UTI in the past. She was treated for UTI one month ago in UC with Keflex on 01/06. Her symptoms were frequency and dysuria. She was unable to get culture at that time. She went back to a different UC on 01/12 and was prescribed Macrobid. She had culture which showed no growth. She went back to again for same symptoms and again had no growth on urine culture. She was told she could have irritation of bladder without infection. She was told to followup with PCP after a vacation. evaluate knee pain Pt. here with bilateral knee pain that started after falling 3 months after she tripped and fell when her shoes gripped too much on the ground.States she has pain when kneeling on the knees. No pain when standing or walking or squatting.Has pain in bilateral lower back area also and sometimes feels like a stiffness or tightening in the lower back area. Takes Ibuprofen with some improvement. Chronic Conditions *See Chronic Conditions HPI Chronic Conditions *See Chronic Conditions HPI Medicare preventive A Health Ris k Assessment has been performed and reviewed. The patient has not felt depressed and has had interest and pleasure doing things recently. Functional status assessed on 02/27/2022. Cognitive Status: (Cognitive status has not changed) on 03/03/2023. The ''Up and Go'' test took less than 30 seconds andthe patient does not need help with activities of daily living. The patient is not at risk for falls. The patient has not fallen in the last year. The fall(s) did not result in injury. The patient does not have smoke detectors, carbon monoxide detectors in the home. Patient reports not using a seatbelt in vehicles. Patient takes calcium supplements. Patient reports taking Vitamin D. Relevant history is positive for alcohol use. Relevant history is negative for tobacco use. f/u chronic conditions f/u hyper lipidemia- stable on rosuvastatin without SE's with LDL 93 at goal less than 100. CMP normal. Exercising regularly.Has major depression in remission on fluoxetine without SE's. Feels she is coping well with stressors.Due for mammogram and DEXA scan. Chronic conditions Medicare preventive A Health Ris k Assessment has been performed and reviewed. The patient has not felt depressed and has had interest and pleasure doing things recently. Functional Status: (Functional status has not changed) on 02/27/2022. Cognitive Status: (Cognitive status has not changed) on 02/27/2022. The ''Up and Go'' test took less than 30 seconds andthe patient does not need help with activities of daily living. The patient is not at risk for falls. The patient has not fallen in the last year. The fall(s) did not result in injury. The patient does not have smoke detectors, carbon monoxide detectors in the home. Patient reports not using a seatbelt in vehicles. Patient reports taking a calcium supplement. Patient reports taking a vitamin D supplement. Relevant history is positive for alcohol use. Relevant history is negative for tobacco use. Chronic Conditions *See Chronic Conditions HPI f/u chronic conditions and pap H ad recent labs done that showed cholesterol increased to 274 with LDL 177. Has been doing more exercise regularly and trying to limit fatty foods and frustrated that cholesterol has increased despite swimming 5 days per week.Has not been on statin in the past but willing to start on low dose statin.Has major depression stable on fluoxetine without SE's. Has good family support. Denies feeling more anxious or depressed recently.Mammogram UTD- due in October.Colonoscopy UTD- done in 06/13. Pap smear due- No prior abnormal pap smears. preventive exam The patient does not use tobacco. She does drink alcohol. Additional information: Routine wellness visit done today.Mammogram UTD, but colonoscopy due now due to h/o colon polyps. Pap smear due- pt. would like to do this at next visit. No prior abnormal pap smears. Had recent labs done that showed cholesterol increased to 258 with LDL 160. Has been doing more exercise regularly and trying to limit fatty foods. Wants to work on her diet for 6 months as she does not want to start on lipid lowering med at this time.Has major depression stable on fluoxetine without SE's. Has good family support. Denies feeling more anxious or depressed recently.. Chronic Conditions *See Chronic Conditions HPI back pain-Lower left side 64 yea r old female who presents with left lower back pain for a few weeks. She noticed pain after a long car ride. She has been taking ibuprofen 800 mg intermittently for pain. Pain worsened 4 days ago. She has been applying Salonpas. She started walking more. She feels that movement makes her pain better. She has taken Valium 5 mg last night from a friend and noticed improvement. Pain does not radiate. Patient is planning on going to [place] in 4 days to see her grandchildren. Denies fever, chills, loss of bowel or bladder control, difficulty voiding, saddle paresthesias, numbness, tingling. Physical preventive exam Pertinent negati ves include anxiety and depression. The patient does not use tobacco. She does drink alcohol. Additional information: Routine wellness visit done today.Had labs done yesterday- results reviewed with pt. Has hyperlipidemia with cholesterol improved with LDL at 119 with limit fatty foods and trying to increase regular exercise. Has major depression in partial remission on fluoxetine with mood stable. Feels she is handling stressors fairly well on med. Denies feeling more depressed.. 6 month office visit f/u elevate d liver enzymes- liver enzymes returned to normal on labs done in 9/19. Had been doing Weight Watcher's and exercising but then started PT for shoulder and neck pain and has not been doing as much exercise. States right shoulder pain improved with PT but still having some numbness/tingling in the right 4th and 5th fingers. Taking motrin daily. States pain in neck and shoulder started shortly after doing more lifting and carrying decorations up the stairs.Has some stiffness in the shoulder shortly after waking up fro sleep. Some stiffness in elbow at times. right shoulder pain 63 year old female who presents with right shoulder pain for 6 weeks. She was exercising in a pool. She was pushing a kick board under the water and it slipped. She felt immediate pain to posterior right shoulder. Pain radiates to right chest and upper arm at times. She has difficulty pushing a grocery cart. She has good ROM otherwise. Patient has been evaluated in our clinic twice over the past 2 weeks. She was prescribed Robaxin. She was referred to PT as well. Patient has taken ibuprofen 800 mg and Robaxin. She was prescribed Mobic last week and instructed to discontinue ibuprofen.Her pain has worsened over the past few days. She has been taking Mobic with no relief. She has not had any new injuries or trauma. Patient was reading on a website and found a story that was similar to her symptoms. This patient's symptoms were relieved with steroid injections and patient would like to know if this would be a possibility.Patient has been continuing to attend PT Shoulder pain f/u 63 year old fe male who presents with right shoulder pain for 5 weeks. She was exercising in a pool. She was pushing a kick board under the water and it slipped. She felt immediate pain to posterior right shoulder. Pain radiates to right chest and upper arm at times. She has difficulty pushing a grocery cart. She has good ROM otherwise. Patient was evaluated in our clinic one week ago. She was prescribed Robaxin and told to continue taking OTC anti-inflammatory medications. She was referred to PT as well.She feel that her right upper back is becoming more loose since doing PT. She has had 3 PT sessions. She has felt less strength in her right hand over the past week. She has difficulty holding her flat iron with her right hand. 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 She been taking ibuprofen 800 mg TID with the muscle relaxer.She also has erythematous papule to face for a few days. She has history of similar symptoms. She has purulent drainage at times. She will typically get more lesions over time. She has taken oral antibiotics in the past. right shoulder pain 63 year old female who presents with right shoulder pain for 3-4 weeks. She was exercising in a pool. She was pushing a kick board under the water and it slipped. She felt immediate pain to posterior right shoulder. Pain radiates to right chest and upper arm at times. She has difficulty pushing a grocery cart. She has good ROM otherwise. She has been taking ibuprofen consistently. She has also used topical pain relief OTC. Pain is worse in the morning. She has been applying ice to area. She has history of neck pain that radiates to the shoulders but she reports that this feels different. She has received trigger point injections in her shoulder area in the past. Denies fever, chills, numbness, tingling, erythema, edema, ecchymosis, chest pain, SOB. preventive exam Pertinent negati ves include anxiety and depression. The patient does not use tobacco. Tobacco cessation has been discussed. She does drink alcohol. Additional information: Pt. here for routine PE.Fasting labs drawn today.Has gained weight due to stress eating. Lane will be moving in with her and soon.Has major depression in partial remission on fluoxetine without SE's.Feels she is coping with stressors fairly well.Has hyperlipidemia trying to control with diet and exercise and concerned that lipids may have increased due to higher in fat in diet recently.. Physical Functional Status Date Functional Assessmen t No Information Instructions Date Instruction Additional Infor mation Continue close monit oring check labs in 6 months Related to Elevated glucose continue rosuvastati nfollow up in 6 months Related to Dyslipidemia Flu vaccine given to dayContinue yearly mammograms- get your mammogram as scheduled in regular exercise Continue low fat dietFollow up in 6 months- labs prior Related to Encntr for general adult medical exam w/o abnormal findings Dietary management e ducation, guidance, and counseling Related to Body mass index (BMI) 27.0-27.9, adult Fall Risk Prevention Immunizations Urinary Incontinence continue close monit oringtry to drink plenty of water daily Related to Essential thrombocythemia continue fluoxetinet ry to get back to regular exercise Related to Depression, major, recurrent, in partial remission continue rosuvastati nfollow up in 6 months for physical - call for lab slip prior Related to Dyslipidemia continue close monit oringcheck labs in 6 months Related to Essential thrombocythemia continue fluoxetinet ry to get back to regular exercise routine Related to Mild recurrent major depression Continue rosuvastati n 10mg dailyCont. to work on low fat diet and increase regular exercise with goal of walking at least 30 min. 3 to 5 times per week.Follow up in 6 months- call for lab slip Related to Pure hypercholesterolemia Continue yearly mamm ograms- get your mammogram as scheduled in regular exercise Continue low fat diet Related to Routine medical exam Urinary Incontinence Exercise Fall Risk Prevention Dietary management e ducation, guidance, and counseling Related to Body mass index (BMI) 30.0-30.9, adult We will check urine today Relate d to Urinary frequency We will check labs today Related to Fatigue, unspecified type Dietary management e ducation, guidance, and counseling Related to Body mass index (BMI) 29.0-29.9, adult You can ice and elev ate the legs as much as possible if you have any increased pain or swellingYou can take Tylenol extra strength 2 tabs up to 3 times daily Related to Pain in right knee You can ice and elev ate the legs as much as possibleYou can take Tylenol extra strength 2 tabs up to 3 times daily Related to Pain in left knee continue regular str etchingYou can take Tylenol extra strength 2 tabs up to 3 times daily Related to Other chronic pain You can take Tylenol extra strength 2 tabs up to 3 times dailystart regular exercises and stretching Related to Chronic bilateral low back pain without sciatica Continue rosuvastati n 10mg dailyCont. to work on low fat diet and increase regular exercise with goal of walking at least 30 min. 3 to 5 times per week.Follow up in 6 months Related to Pure hypercholesterolemia continue fluoxetineC ontinue regular exercise Related to Major depression in remission Dietary management e ducation, guidance, and counseling Related to Body mass index (BMI) 29.0-29.9, adult continue fluoxetineC ontinue regular exercise Related to Major depression in remission Continue rosuvastati n 10mg daily- call immediately if you develop any severe muscle pain or weaknessCont. to work on low fat diet and increase regular exercise with goal of walking at least 30 min. 3 to 5 times per week.Follow up in 6 months Related to Pure hypercholesterolemia Continue yearly mamm ograms- get your mammogram and bone density as scheduled in regular exercise Continue low fat diet Related to Routine medical exam Fall Risk Prevention Exercise Dietary management e ducation, guidance, and counseling Related to Body mass index (BMI) 27.0-27.9, adult Urinary Incontinence Mammogram ordered Related to [facility] simoneer for screening mammogram for malignant neoplasm of breast DEXA scan ordered Related to Asy mptomatic menopausal state continue fluoxetineC ontinue regular exerciseStatus: Able to self-manage condition. Goals: Your goal is to manage stress. Barriers: No barriers to goal achievement have been identified. Related to Major depression in remission Flu vaccine given to dayContinue rosuvastatin 10mg daily- call immediately if you develop any severe muscle pain or weaknessCont. to work on low fat diet and increase regular exercise with goal of walking at least 30 min. 3 to 5 times per week.Follow up in 6 months for physical Related to Pure hypercholesterolemia Dietary management e ducation, guidance, and counseling Related to Body mass index (BMI) 25.0-25.9, adult Immunizations Fall Risk Prevention Urinary Incontinence continue fluoxetineC ontinue regular exerciseStatus: Able to self-manage condition. Goals: Your goal is to manage stress. Barriers: No barriers to goal achievement have been identified. Related to Major depression in remission Continue rosuvastati n 10mg daily- call immediately if you develop any severe muscle pain or weaknessCont. to work on low fat diet and increase regular exercise with goal of walking at least 30 min. 3 to 5 times per week. Related to Pure hypercholesterolemia EKG done todayContin ue yearly mammogramsContinue regular exercise Prevnar 20 given todayrecommend getting your 2nd COVID booster at the pharmacyContinue low fat dietf/u in 6 months- call for lab slip for CBC, CMP, lipid, TSH Related to Routine medical exam Dietary management e ducation, guidance, and counseling Related to Body mass index (BMI) 28.0-28.9, adult Urinary Incontinence Immunizations Fall Risk Prevention Pap smear with HPV o rdered- we will call you with results Related to Cervical cancer screening Pap smear with HPV o rdered- we will call you with results Related to Encounter for gynecological examination with Papanicolaou smear of cervix continue fluoxetineC ontinue regular exerciseStatus: Able to self-manage condition. Goals: Your goal is to manage stress. Barriers: No barriers to goal achievement have been identified. Related to Major depression in remission Start rosuvastatin 1 0mg daily- call immediately if you develop any severe muscle pain or weaknesscheck lipids in 2 monthsCont. to work on low fat diet and increase regular exercise with goal of walking at least 30 min. 3 to 5 times per week. Related to Pure hypercholesterolemia Dietary management e ducation, guidance, and counseling Related to Body mass index (BMI) 27.0-27.9, adult refer for colonoscopy Related to Personal history of colonic polyps check lipids in 6 mo nthsCont. to work on low fat diet and increase regular exercise with goal of walking at least 30 min. 3 to 5 times per week. Related to Pure hypercholesterolemia Continue yearly mamm ogramsContinue regular exercise Continue low fat dietf/u in 6 months- will do pap at that time Related to Routine medical exam continue fluoxetineC ontinue regular exerciseStatus: Able to self-manage condition. Goals: Your goal is to manage stress. Barriers: No barriers to goal achievement have been identified. Related to Major depression in remission Dietary management e ducation, guidance, and counseling Related to Body mass index (BMI) 29.0-29.9, adult Exercise check lipids in 6 mo nthsCont. to work on low fat diet and increase regular exercise with goal of walking at least 30 min. 3 to 5 times per week. Related to Pure hypercholesterolemia continue fluoxetineC ontinue regular exerciseStatus: Able to self-manage condition. Goals: Your goal is to manage stress. Barriers: No barriers to goal achievement have been identified. Related to Major depression in remission Dietary management e ducation, guidance, and counseling Related to Body mass index (BMI) 30.0-30.9, adult Take diazepam twice daily as neededContinue taking ibuprofen Call our office if symptoms do not improve Related to Acute left-sided low back pain without sciatica Dietary management e ducation, guidance, and counseling Related to Body mass index (BMI) 29.0-29.9, adult continue fluoxetineC ontinue regular exerciseStatus: Able to self-manage condition. Goals: Your goal is to manage stress. Barriers: No barriers to goal achievement have been identified. Related to Major depression in remission check lipids todayCo nt. to work on low fat diet and increase regular exercise with goal of walking at least 30 min. 3 to 5 times per week. Related to Pure hypercholesterolemia Fasting labs done to day- we will notify you with resultsContinue regular exercise Continue low fat dietYou will be due for your colonoscopy and pap smear next year Related to Routine medical exam Dietary management e ducation, guidance, and counseling Related to Body mass index (BMI) 28.0-28.9, adult Exercise Please call back aft er your follow up with Dr. Sun tomorrow to let us know if he feels MRI of c-spine is warranted due to persistent numbness/tingling in the right 4th and 5 th fingers Related to Paresthesias in right hand Keep f/u with Dr. Inga gomez, ortho, as scheduled tomorrowcontinue home exercise program as instructed by PT Related to Right shoulder pain, unspecified chronicity Dietary management e ducation, guidance, and counseling Related to Body mass index (BMI) 28.0-28.9, adult Exercise We will order an MRI today Relat ed to Right shoulder pain, unspecified chronicity Dietary management e ducation, guidance, and counseling Related to Body mass index (BMI) 28.0-28.9, adult Take Mobic once estela y. Do not take other NSAIDs such as ibuprofen, Aleve, naproxenYou may continue to take muscle relaxerContinue to go to PT Related to Right shoulder pain, unspecified chronicity Apply mupirocin oint ment as directedApply to bilateral nostrils twice for 5 days Related to Impetigo Dietary management e ducation, guidance, and counseling Related to Body mass index (BMI) 28.0-28.9, adult Giving encouragement to exercise Related to Body mass index (BMI) 28.0-28.9, adult We will refer you to physical therapyTake methocarbamol (muscle relaxer) as needed. Do not drink alcohol or drive while taking this medicationContinue taking OTC pain relievers such as ibuprofen. Take with food Related to Right shoulder pain, unspecified chronicity Dietary management e ducation, guidance, and counseling Related to Body mass index (BMI) 28.0-28.9, adult Try to follow low fa t diet and try to increase regular exercise Related to Pure hypercholesterolemia continue fluoxetineS tatus: Able to self-manage condition. Goals: Your goal is to manage stress. Barriers: No barriers to goal achievement have been identified. Related to Major depression in remission You are due for your pap next yearYou are due for your mammogram in August Related to Routine medical exam Dietary management e ducation, guidance, and counseling Related to Body mass index (BMI) 30.0-30.9, adult Exercise Assessments Type Assessment Date No Information Patient Care Teams Name Effective Dates (start - stop) Status Members No Information
--- NOTE | ~2025-05-29 | MM_ITS ---
EXAMINATION: MM screening nathalia BI w adi HISTORY: Screening TECHNIQUE: Craniocaudal and mediolateral oblique 3-D tomosynthesis images were obtained and synthetic 2-D images were generated. CAD analysis was submitted and interpreted. COMPARISON: Comparison to multiple prior studies sequentially, with oldest reviewed study dated 10/11/2019. BREAST PARENCHYMAL COMPOSITION: The breasts are almost entirely fatty. FINDINGS: There is no evidence of suspicious mass, calcification, or architectural distortion to suggest malignancy in either breast. Scattered benign-appearing calcifications are present. IMPRESSION: 1. No mammographic evidence of malignancy. 2. Recommend routine screening mammography in one year. BI-RADS Category 2: Benign finding(s). Reviewed, dictated and finalized at location B.
--- OUTSIDE RECORDS SUMMARY | 2025-05-29 15:45 | XMS_ITS | Clinical Summary ---
Author Organization [facility] [place] [facility] Address [address] [place] [id number] Care Team Providers Care Bottom Saw Operator Name Role Phone Adri Hernandez MD Primary Care Provider + Adri Hernandez MD Unavailable [phone] Allergies No known active allergies Medications FLUoxetine (PROzac) 20 mg capsule TK 1 C PO QD IN THE MORNING 3 06/20/2019 Active calcium citrate/vitamin D3 (CITRACAL REGULAR ORAL) Take by mouth Active cholecalciferol (VITAMIN D3) 1,000 unit capsule Take 1,000 Units by mouth daily Active ibuprofen (ADVIL,MOTRIN) 800 mg tablet 08/29/2019 Activ e Active Problems Problem Noted Date Diagnosed Date Neck pain 08/11/2019 Radiculopathy of cervicothoracic region 08/11/20 19 Impingement syndrome of right shoulder 9 OA right shoulder-moderate AC joint 07/05/2019 Surgical History Surgery Date Site/Laterality Comments OOPHORECTOMY 08/24/1977 - 08/23/1978 Right BREAST BIOPSY 08/24/1991 - 08/23/1992 Medical History Medical History Date Comments Depression Hypercholesteremia Myofascial pain neck, trapezius Degenerative disc disease, cervical Cervical kyphosis Compression fracture of C7 vertebra (HCC) Burst fracture C7 as a teenager Arthropathy of cervical facet joint Cervical spondylosis Family History Medical History Relation Name Comments Alzheimer's disease Father Arthritis Mother Cancer Mother breast, thyroid Heart disease Mother Relation Name Status Comments Father Mother Social History Tobacco Use Types Packs/Day Years Used Date Smoking Tobacco: Never Alcohol Use Standard Drinks/Week Comments Defer 0 (1 standard drink = 0.6 oz pur e alcohol) Personal Safety Answer Date Recorded Getting School Help Needed Not on file 11/07 Comments Unknown Sex and Gender Information Value Date Recorded Sex Assigned at Not on file Legal Sex Female 5:37 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 Gender Identity Not on file Sexual Orientation Not on file 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 Not on file Not on file Not on file Obstetrics History Last Filed Vital Signs Vital Sign Reading Time Taken Comments Blood Pressure - - Pulse - - Temperature - - Respiratory Rate - - Oxygen Saturation - - Inhaled Oxygen Concentration - - Weight 82.6 kg (182 lb) 09/06/2019 10:17 AM IN FLIGHT TECHNICIAN Height 170.2 cm (5' 7) 09/06/2019 10:17 AM IN FLIGHT TECHNICIAN Body Mass Index 28.51 09/06/2019 10:17 AM IN FLIGHT TECHNICIAN Plan of Treatment Not on [place] [address] [place] [address] [place] [id number] Care Teams Bottom Saw Operator Relationship Specialty Start Date End Date Adri Hernandez MD PCP - General 07/05/19 Adri Hernadnez MD Internal Medicine 07/05/19
--- OUTSIDE RECORDS SUMMARY | 2025-05-29 15:45 | XMS_ITS | Clinical Summary ---
Author Organization [facility] Address [facility] [place] [address] Care Team Providers Care Time Cycle Operator Name Role Phone Adri Hernandez MD Primary Care Provider [phone] Allergies No known active allergies Medications HYDROcodone-acet aminophen (NORCO) 5-325 MG tabletIndication s:Acute Pain < 3 Day Supply Take 1 tablet by mouth every 6 (six) hours as needed for Pain. Indications : Acute Pain < 3 Day Supply 10 tablet 05/23/2025 Active Encounters Date Type Department Care Team Description 05/23/2025 1:33 PM CDT - 05/23/2025 2:28 PM CDT Emergency [facility] [place] [address] Skylar Shabazz, EDGER RUNNER Fall; Head Injury Discharge Disposition: Home or Self Care (Routine Discharge) 05/23/2025 Travel from Last 3 Months Social History Tobacco Use Types Packs/Day Years Used Date Smoking Tobacco: Never Smokeless Tobacco: Never Tobacco Cessation:Counseling Given: Not Answered Alcohol Use Standard Drinks/Week Comments Never 0 (1 standard drink = 0.6 oz pur e alcohol) Comments No Sex and Gender Information Value Date Recorded Sex Assigned at Not on file Legal Sex Female 12:00 PM CDT Gender Identity Not on file Sexual Orientation Not on file Last Filed Vital Signs Vital Sign Reading Time Taken Comments Blood Pressure 126/81 05/23/2025 12:05 PM CDT Pulse 73 05/23/2025 12:05 PM CDT Temperature 36.8 C (98.2 F) 05/23/2025 12:05 PM CDT Respiratory Rate 17 05/23/2025 12:05 PM CDT Oxygen Saturation 100% 05/23/2025 12:05 PM CDT Inhaled Oxygen Concentration - - Weight 77.1 kg (170 lb) 05/23/2025 12:05 PM CDT Height 167.6 cm (5' 6) 05/23/2025 12:05 PM CDT Body Mass Index 27.44 05/23/2025 12:05 PM CDT Plan of Treatment Health Maintenance Due Date Last Done Comments Colorectal Cancer Screening Colonoscopy (10 Years) 1956 Hepatitis C 1974 DTaP, Tdap and Td Vaccines (1 - Tdap) 1975 Mammogram Screening 1996 Annual Medicare Wellness Visit 2021 Dexa Scan (General) 2021 COVID-19 Vaccine ( - season) 2025 07/28/2021, 11/15/2020, 10/23/2020 RSV Immunization or 60+ Years (1 - 1-dose 75+ series) 2031 Zoster Vaccines Completed 05/27/2020, 09/05/2019 Pneumococcal Vaccine: 50+ Years Completed 02/27/2022 Influenza Adult Completed 05/08/2025, 08/24, 09/04/2022, Additional history exists Meningococcal B Vaccine Aged Out No l onger eligible based on patient's age to complete this topic Meningococcal Vaccine Aged Out No dulce juwan eligible based on patient's age to complete this topic RSV Immunizations Under 20 Months Aged Out No longer eligible based on patient's age to complete this topic Procedures Procedure Name Priority Date/Time Associated Diagnosis Comments CT CERV SPINE WO CON STAT 05/23/2025 12:[address] FACIAL BONES WO CON STAT 05/23/2025 12:[address] HEAD WO CON STAT 05/23/2025 12:54 PM CDT from Last 3 Months Results * CT HEAD WO CON (05/23/2025 12:54 PM CDT) Anatomical Region Laterality Modality Head Computed Tomogra phy 05/23/2025 1:53 PM CDT Impressions 05/23/2025 1:59 PM CDT IMPRESSION: 1. Small hematoma superolateral to the right orbit. No depressed skull fracture. 2. No acute intracranial hemorrhage or mass effect. Referred By: Interpreted By: Basil Whitaker MD, 05/23/2025 1:53 PM Narrative 05/23/2025 1:[address] [address] EXAMINATION: Head CT without contrast 05/23/2025 INDICATION: Trauma, fall TECHNIQUE: Axial CT images of head acquired without intravenous contrast. Sagittal and coronal reformats were constructed. Radiation dose reduction techniques were used. COMPARISON: None FINDINGS:There is a hematoma along the superolateral left right orbit measuring 0.8 x 1.1 x 0.6 cm. No other significant extracranial soft tissue swelling. No depressed skull fracture. The mastoid air cells and middle ear cavities are clear. There is mild mucosal thickening of the frontal ethmoid recesses, right ethmoid sinus and bilateral maxillary sinuses. No dependent air-fluid levels. The orbits and globes are unremarkable. No post septal inflammatory changes. No acute intracranial hemorrhage, mass effect, midline shift or extra axial fluid collection. No ventriculomegaly, sulcal effacement or loss of field/white matter differentiation. Procedure Note Basil Whitaker MD - 05/23/[address] [address] EXAMINATION: Head CT without contrast 05/23/2025 INDICATION: Trauma, fall TECHNIQUE: Axial CT images of head acquired without intravenous contrast.Sagittal and coronal reformats were constructed. Radiation dose reductiontechniques were used. COMPARISON: None FINDINGS:There is a hematoma along the superolateral left right orbitmeasuring 0.8 x 1.1 x 0.6 cm. No other significant extracranial softtissue swelling. No depressed skull fracture. The mastoid air cells and middle earcavities are clear. There is mild mucosal thickening of the frontalethmoid recesses, right ethmoid sinus and bilateral maxillary sinuses. Nodependent air-fluid levels. The orbits and globes are unremarkable. No post septal inflammatorychanges. No acute intracranial hemorrhage, mass effect, midline shift or extraaxial fluid collection. No ventriculomegaly, sulcal effacement or loss ofgray/white matter differentiation. IMPRESSION: 1. Small hematoma superolateral to the right orbit. No depressed skullfracture. 2. No acute intracranial hemorrhage or mass effect. Referred By: Interpreted By: Basil Whitaker MD, 05/23/2025 1:53 PM Skylar Shabazz EDGER RUNNER CT Final Resul t * CT FACIAL BONES WO CON (05/23/2025 12:54 PM CDT) Anatomical Region Laterality Modality Facial Computed Tomogra phy 05/23/2025 1:40 PM CDT Impressions 05/23/2025 1:53 PM CDT IMPRESSION: 1. Small hematoma superolateral to the right orbit. 2. No acute fracture or dislocation. 3. Mild mucosal thickening of the frontal ethmoid recesses, right ethmoid sinus and bilateral maxillary sinuses. No dependent air-fluid levels. Referred By: Interpreted By: Basil Whitaker MD, 05/23/2025 1:40 PM Narrative 05/23/2025 1:53 PM CDT [facility] [address] [place], [place] [address] EXAMINATION: Facial CT without contrast 05/23/2025 INDICATION: Fall, trauma TECHNIQUE: Axial CT images of the axial facial structures were acquired without intravenous contrast. Sagittal coronal reformats were constructed. Radiation dose reduction techniques were used. COMPARISON: None FINDINGS:The mastoid air cells and middle ear cavities are clear. There is mucosal thickening of the frontal ethmoid recesses, right ethmoid sinus and bilateral maxillary sinuses. No dependent air-fluid levels. The orbital long and rims are intact. The nasal bones, zygomatic arches and pterygoid plates are intact. The mandible and temporomandibular joint spaces are unremarkable. The sella is within normal limits for size. The lateral masses of C1 and C2 are well aligned. The dens is intact. The occipital condyles are intact No acute fracture or dislocation. Partially visualized intracranial contents are unremarkable. Orbits and globes are unremarkable. There is a hematoma superolateral to the right orbit measuring 2.1 x 2.1 x 0.8 cm in the CC, AP and transverse dimensions. No soft tissue gas or radiopaque foreign body. No post septal inflammatory changes. The oral cavity and tongue are unremarkable. The nasopharynx oropharynx and hypopharynx are unremarkable. Procedure Note Basil Whitaker MD - 05/23/[address] [address] EXAMINATION: Facial CT without contrast 05/23/2025 INDICATION: Fall, trauma TECHNIQUE: Axial CT images of the axial facial structures were acquiredwithout intravenous contrast. Sagittal coronal reformats wereconstructed. Radiation dose reduction techniques were used. COMPARISON: None FINDINGS:The mastoid air cells and middle ear cavities are clear. Thereis mucosal thickening of the frontal ethmoid recesses, right ethmoid sinusand bilateral maxillary sinuses. No dependent air-fluid levels. The orbital long and rims are intact. The nasal bones, zygomatic arches and pterygoid plates are intact. Themandible and temporomandibular joint spaces are unremarkable. The sella is within normal limits for size. The lateral masses of C1 andC2 are well aligned. The dens is intact. The occipital condyles areintact No acute fracture or dislocation. Partially visualized intracranial contents are unremarkable. Orbits andglobes are unremarkable. There is a hematoma superolateral to the rightorbit measuring 2.1 x 2.1 x 0.8 cm in the CC, AP and transversedimensions. No soft tissue gas or radiopaque foreign body. No postseptal inflammatory changes. The oral cavity and tongue are unremarkable. The nasopharynx oropharynxand hypopharynx are unremarkable. IMPRESSION: 1. Small hematoma superolateral to the right orbit. 2. No acute fracture or dislocation. 3. Mild mucosal thickening of the frontal ethmoid recesses, right ethmoidsinus and bilateral maxillary sinuses. No dependent air-fluid levels. Referred By: Interpreted By: Basil Whitaker MD, 05/23/2025 1:40 PM Skylar Shabazz EDGER RUNNER CT Final Resul t * CT CERV SPINE WO CON (05/23/2025 12:54 PM CDT) Anatomical Region Laterality Modality Spine Computed Tomogra phy 05/23/2025 1:34 PM CDT Impressions 05/23/2025 1:40 PM CDT IMPRESSION: 1. Age-indeterminate compression fracture of C7 with 50% loss of height, favored to be chronic. No retropulsed fragments. No other fracture, dislocation or prevertebral edema. 2. Osteopenia with grade 1 anterolisthesis of C4/C5. 3. Severe neuroforaminal stenosis on the right at C4/C5 and C7/T1. Moderate neuroforaminal stenosis on the right at C5/C6. 4. Moderate neural foraminal stenosis on the left at C5/C6. Referred By: Interpreted By: Basil Whitaker MD, 05/23/2025 1:34 PM Narrative 05/23/2025 1:40 PM CDT [facility] [address] [place], [place] [address] EXAMINATION:CT cervical spine without contrast 05/23/2025 INDICATION:Fall TECHNIQUE: Axial CT images of the cervical spine were acquired without intravenous contrast. Sagittal coronal reformats were constructed. Radiation dose reduction techniques were used. COMPARISON: None FINDINGS: Mineralization appears to be diffusely decreased. There is a chronic appearing compression fracture of T7 with depression of the superior and inferior endplates and approximately 50% loss of height. No retropulsed fragments. There is grade 1 retrolisthesis at C4/C5 measuring 2 mm. The lateral masses of C1 and C2 are well aligned. The dens is intact. The occipital condyles are intact. No other acute fracture or dislocation. No stenosis at the foramen magnum or C1/C2 level C2/C3: Negative C3/C4: Disc space narrowing with uncovertebral facet arthropathy causing severe left neural foraminal stenosis C4/C5: Disc space narrowing with grade 1 anterolisthesis, uncovertebral arthropathy and facet arthropathy causing severe right neural foraminal stenosis C5/C6 with disc space narrowing, uncovertebral arthropathy and facet arthropathy causing moderate bilateral foraminal stenosis C6/C7: Disc space narrowing, uncovertebral arthropathy and facet arthropathy causing mild bilateral foraminal stenosis. C7/T1: Disc space narrowing, uncovertebral arthropathy and facet arthropathy causing severe right neural foraminal stenosis and mild left neural foraminal stenosis. No prevertebral edema. No paraspinal mass or fluid collection. There is a 4 mm hypodense lesion within the posterior right lobe of the thyroid gland. No acute abnormality visualized lung apices. There are multiple bilateral palatine tonsilloliths. Partially visualized intracranial contents are unremarkable. The visualized mastoid air cells and middle ear cavities are clear. Procedure Note Basil Whitaker MD - 05/23/[address] [address] EXAMINATION:CT cervical spine without contrast 05/23/2025 INDICATION:Fall TECHNIQUE: Axial CT images of the cervical spine were acquired withoutintravenous contrast. Sagittal coronal reformats were constructed.Radiation dose reduction techniques were used. COMPARISON: None FINDINGS: Mineralization appears to be diffusely decreased. There is achronic appearing compression fracture of T7 with depression of thesuperior and inferior endplates and approximately 50% loss of height. Noretropulsed fragments. There is grade 1 retrolisthesis at C4/C5 measuring 2 mm. The lateralmasses of C1 and C2 are well aligned. The dens is intact. The occipitalcondyles are intact. No other acute fracture or dislocation. No stenosis at the foramen magnum or C1/C2 level C2/C3: Negative C3/C4: Disc space narrowing with uncovertebral facet arthropathy causingsevere left neural foraminal stenosis C4/C5: Disc space narrowing with grade 1 anterolisthesis, uncovertebralarthropathy and facet arthropathy causing severe right neural foraminalstenosis C5/C6 with disc space narrowing, uncovertebral arthropathy and facetarthropathy causing moderate bilateral foraminal stenosis C6/C7: Disc space narrowing, uncovertebral arthropathy and facetarthropathy causing mild bilateral foraminal stenosis. C7/T1: Disc space narrowing, uncovertebral arthropathy and facetarthropathy causing severe right neural foraminal stenosis and mild leftneural foraminal stenosis. No prevertebral edema. No paraspinal mass or fluid collection. There angela 4 mm hypodense lesion within the posterior right lobe of the thyroidgland. No acute abnormality visualized lung apices. There are multiplebilateral palatine tonsilloliths. Partially visualized intracranialcontents are unremarkable. The visualized mastoid air cells and middleear cavities are clear. IMPRESSION: 1. Age-indeterminate compression fracture of C7 with 50% loss of height,favored to be chronic. No retropulsed fragments. No other fracture,dislocation or prevertebral edema. 2. Osteopenia with grade 1 anterolisthesis of C4/C5. 3. Severe neuroforaminal stenosis on the right at C4/C5 and C7/T1.Moderate neuroforaminal stenosis on the right at C5/C6. 4. Moderate neural foraminal stenosis on the left at C5/C6. Referred By: Interpreted By: Basil Whitaker MD, 05/23/2025 1:34 PM Skylar Shabazz EDGER [employer]NER CT Final Resul t from Last 3 Months Insurance MEDICARE [facility] Care Teams Time Cycle Operator Relationship Specialty Start Date End Date Adri Hernandez MD [address] [place] [id number] PCP - General INTERNAL MEDICINE 05/23/25
== END 2025-05-29 15:07 | disposition home or self-care (01) ==
LOC: ANHFOHIMG 15:07
PROVIDERS: PCP Internal Medicine; Visit Provider Internal Medicine
DX: Z12.31 Encounter for screening mammogram for malignant neoplasm of breast (principal)
CPT/HCPCS: 77063; 77067